=== PATIENT | female | born 1945 | race Caucasian/White ===

== ENCOUNTER 2019-06-25 13:10 | Emergency (ER) | payer MEDICARE ==
[~2019-06-25] VITALS: Ht 165.5 cm; Wt 66.9 kg
[2019-06-25 13:43] LABS: HEMATOCRIT 40 % (35-52); HEMOGLOBIN 12.9 G/DL (11.5-16.0); MEAN CORPUSCULAR HEMOGLOBIN 29 PG (25-34); MEAN CORPUSCULAR HGB CONC 32 G/DL (32-36); MEAN CORPUSCULAR VOLUME 91 FL (80-99); WHITE BLOOD COUNT 6.7 10^3/uL (4.3-11.0)
[2019-06-25 13:44] LABS: BASOPHILS % (AUTO) 1 % (0-10); EOSINOPHILS # (AUTO) 0.2 10^3/uL (0.0-0.3); EOSINOPHILS % (AUTO) 3 % (0-10); LYMPHOCYTES # (AUTO) 2.6 X 10^3 (1.0-4.0); LYMPHOCYTES % (AUTO) 39 % (12-44); MEAN PLATELET VOLUME 9.8 FL (7.4-10.4); MONOCYTES # (AUTO) 0.8 X 10^3 (0.0-1.0); MONOCYTES % (AUTO) 12 % (0-12); NEUTROPHILS % (AUTO) 45 % (42-75); PLATELET COUNT 267 10^3/uL (130-400); RED CELL DISTRIBUTION WIDTH 12.8 % (10.0-14.5)
--- NOTE | 2019-06-25 14:08 | ED General ---
General Chief Complaint: Altered Mental Status Stated Complaint: AMS Source of Information: Patient Exam Limitations: No Limitations History of Present Illness Date Seen by Provider: Jun 25, 2019 Time Seen by Provider: 13:45 Initial Comments The patient is a very pleasant 74-year-old female who presents for evaluation of acute onset of confusion. The patient was at work and went into a coworker's office at 1300 and stated that she was having a hard time thinking area and the coworker is now in the emergency department and denies any facial droop, difficulty walking, or difficulty with word finding. The patient was repeating herself and was having significant confusion. They checked her blood pressure at work and it was quite elevated with a systolic of approximately 220. Per the patient's son who is present the patient's only prescribed medication is Synthroid. She is able to tell me that the year is 2018 but she is unsure of the month. She thinks that her physician is a physician who actually retired 3 years ago. She denies headache, neck pain or neck stiffness, fevers or chills, vision changes, focal weakness or focal numbness, chest pain or shortness of breath, back or abdominal discomfort, dizziness or syncope. She is alert, calm, and appears to be in no distress. Timing/Duration: 1/2 Hour Severity: Moderate Associated Systoms: Denies Symptoms Allergies and Home Medications Allergies Coded Allergies: simvastatin (Verified Allergy, Unknown, 06/25/19) Patient Home Medication List Home Medication List Reviewed: Yes Review of Systems Review of Systems Constitutional: no symptoms reported EENTM: no symptoms reported Respiratory: no symptoms reported Cardiovascular: no symptoms reported Gastrointestinal: no symptoms reported Genitourinary: no symptoms reported Musculoskeletal: no symptoms reported Skin: no symptoms reported Psychiatric/Neurological: Other (confusion) Hematologic/Lymphatic: No Symptoms Reported Immunological/Allergic: no symptoms reported All Other Systems Reviewed Negative Unless Noted: Yes Past Tnrncvv-Strtmw-Dzuvbz Hx Past Med/Social Hx: Reviewed Nursing Past Med/Soc Hx Patient Social History Alcohol Use: Rarely Uses Recreational Drug Use: No Smoking Status: Never a Smoker 2nd Hand Smoke Exposure: No Recent Foreign Travel: No Recent Hopitalizations: No Physical Abuse: No Sexual Abuse: No Mistreated: No Fear: No Seasonal Allergies Seasonal Allergies: No Past Medical History Surgeries: Yes Adenoidectomy, Hysterectomy, Tonsillectomy Respiratory: No Cardiac: Yes High Cholesterol, Hypertension Neurological: No Genitourinary: No Gastrointestinal: No Musculoskeletal: No Endocrine: Yes Hypothyroidsim HEENT: No Cancer: No Psychosocial: No Integumentary: No Physical Exam Vital Signs Capillary Refill : Height, Weight, BMI Height: '" Weight: lbs. oz. kg; BMI Method: General Appearance: No Apparent Distress, WD/WN Eyes: Bilateral Eye Normal Inspection, Bilateral Eye PERRL, Bilateral Eye EOMI HEENT: PERRL/EOMI, Normal ENT Inspection, Pharynx Normal Neck: Full Range of Motion, Normal Inspection, Non Tender, Supple Respiratory: Chest Non Tender, Normal Breath Sounds, No Respiratory Distress Cardiovascular: Regular Rate, Rhythm, No Edema, No Murmur Gastrointestinal: Normal Bowel Sounds, Non Tender, Soft Extremity: Normal Capillary Refill, Normal Range of Motion, Non Tender Neurologic/Psychiatric: Alert, No Motor/Sensory Deficits, Normal Mood/Affect, concreting supervisor II-XII Norm as Tested, Other (NIHSS: 1 (month/age), confused) Skin: Normal Color, Warm/Dry Progress/Results/Core Measures Suspected Sepsis SIRS Temperature: Pulse: Respiratory Rate: Laboratory Tests 06/25/19 13:30: White Blood Count 6.7 Blood Pressure / Mean: Laboratory Tests 06/25/19 13:30: Creatinine 0.72, INR Comment 0.9, Platelet Count 267, Total Bilirubin 0.3 Results/Orders Lab Results Laboratory Tests Test 06/25/19 13:30 06/25/19 14:02 Range/Units White Blood Count 6.7 4.3-11.0 10^3/uL Red Blood Count 4.41 4.35-5.85 10^6/uL Hemoglobin 12.9 11.5-16.0 G/DL Hematocrit 40 35-52 % Mean Corpuscular Volume 91 80-99 FL Mean Corpuscular Hemoglobin 29 25-34 PG Mean Corpuscular Hemoglobin Concent 32 32-36 G/DL Red Cell Distribution Width 12.8 10.0-14.5 % Platelet Count 267 130-400 10^3/uL Mean Platelet Volume 9.8 7.4-10.4 FL Neutrophils (%) (Auto) 45 42-75 % Lymphocytes (%) (Auto) 39 12-44 % Monocytes (%) (Auto) 12 0-12 % Eosinophils (%) (Auto) 3 0-10 % Basophils (%) (Auto) 1 0-10 % Neutrophils # (Auto) 3.0 1.8-7.8 X 10^3 Lymphocytes # (Auto) 2.6 1.0-4.0 X 10^3 Monocytes # (Auto) 0.8 0.0-1.0 X 10^3 Eosinophils # (Auto) 0.2 0.0-0.3 10^3/uL Basophils # (Auto) 0.0 0.0-0.1 10^3/uL Prothrombin Time 12.3 12.2-14.7 SEC INR Comment 0.9 0.8-1.4 Activated Partial Thromboplast Time 28 24-35 SEC Sodium Level 139 135-145 MMOL/L Potassium Level 4.0 3.6-5.0 MMOL/L Chloride Level 102 98-107 MMOL/L Carbon Dioxide Level 25 21-32 MMOL/L Anion Gap 12 5-14 MMOL/L Blood Urea Nitrogen 16 7-18 MG/DL Creatinine 0.72 0.60-1.30 MG/DL Estimat Glomerular Filtration Rate > 60 BUN/Creatinine Ratio 22 Glucose Level 92 70-105 MG/DL Calcium Level 9.7 8.5-10.1 MG/DL Corrected Calcium 9.4 8.5-10.1 MG/DL Total Bilirubin 0.3 0.1-1.0 MG/DL Aspartate Amino Transf (AST/SGOT) 23 5-34 U/L Alanine Aminotransferase (ALT/SGPT) 17 0-55 U/L Alkaline Phosphatase 56 40-136 U/L Troponin I < 0.30 <0.30 NG/ML Total Protein 7.8 6.4-8.2 GM/DL Albumin 4.4 3.2-4.5 GM/DL Urine Color YELLOW Urine Clarity CLEAR Urine pH 6.0 5-9 Urine Specific Fitzwilliam <=1.005 1.016-1.022 Urine Protein NEGATIVE NEGATIVE Urine Glucose (UA) NEGATIVE NEGATIVE Urine Ketones NEGATIVE NEGATIVE Urine Nitrite NEGATIVE NEGATIVE Urine Bilirubin NEGATIVE NEGATIVE Urine Urobilinogen 0.2 NORMAL MG/DL Urine Leukocyte Esterase NEGATIVE NEGATIVE Urine RBC (Auto) NEGATIVE NEGATIVE Urine RBC NONE /HPF Urine WBC RARE /HPF Urine Squamous Epithelial Cells RARE /HPF Urine Crystals NONE /LPF Urine Bacteria NEGATIVE /HPF Urine Casts NONE /LPF Urine Mucus NONE /LPF Urine Culture Indicated NO My Orders Orders - LUIS THORNTON DO Cbc With Automated Diff (06/25/19:) Protime With Inr (06/25/19:) Partial Thromboplastin Time (06/25/19) Comprehensive Metabolic Panel (06/25/19) Troponin I Fs (06/25/19) Ua Culture If Indicated (06/25/19:) Chest 1 View Ap/Pa Only (06/25/19) Ekg Tracing (06/25/19) Nothing By Mouth (06/25/19 Dinner) Ed Iv/Invasive Line Start (06/25/19:) Vital Signs Stroke Patient Q15M (06/25/19:) Ct Head Wo-R/O Stroke (06/25/19) O2 (06/25/19) Monitor-Rhythm Ecg Trace Only (06/25/19) Dysphagia Screening Tool (06/25/19:) Vital Signs/I&O Capillary Refill : Progress Note : Progress Note @1425 - Patient and family updated on lab and imaging results. CT head is unremarkable. Given the patient's acute onset of confusion as well as uncontrolled hypertension I explained to the family that she would be best served to be at a facility with excellent stroke care. Her NIH is only 1. I splinted him that I would like to discuss with a neurologist if they would like me to leave the blood pressure alone or to treat it. I would also like to discuss with them if the patient would be a TPA candidate. Her symptoms started approximately 1.5 hours ago. Family states they will call other family to see if they prefer the [facility] or the [facility] for transfer. @1450 - Family made multiple phone calls to family members in the medical field and now wants to call insurance companies before deciding on location. I explained that we need to initiate the transfer and that if they find out that the hospital is not within their network we can always cancel the transfer and try a different hospital but I do not want to cause any further delay. He states transfer the patient to the [facility]. The express understanding. [facility]'s transfer line called and they state they will call back with a transfer physician as well as a neurologist. @1505 - Dr. Anton Wallace accepts the ER-to-ER transfer at [facility]. Dr. Love, neurology, also on the call. He feels the likelihood of this being a stroke is less than 1% and to hold off on TPA. They plan to obtain further imaging (MRI) immediately upon arrival and recommend travel by helicopter. ECG Comment @1319 - sinus bradycardia, rate of 52, normal axis, no acute ischemic findings noted, no STEMI, reviewed and interpreted by myself Diagnostic Imaging Diagonstic Imaging: CT Comments [facility] [place] NAME: NIKHIL DUTTA [facility] REC#: [id number] PT STATUS: REG ER : 1945 PHYSICIAN: LUIS THORNTON DO ADMIT DATE: 06/25/19/ER FS Draft Date of Exam:06/25/19 CT HEAD WO-R/O STROKE INDICATION: Altered mental status. TECHNIQUE: Routine non contrast-enhanced axial images were obtained from the skull base to the vertex. Auto Exposure Controls were utilized during the CT exam to meet ALARA standards for radiation dose reduction COMPARISON: None. FINDINGS: The ventricles and cortical sulci are diffusely prominent, compatible with age-related volume loss. There is no midline shift or mass-effect. No acute intra-axial hemorrhage is seen. There are no abnormal areas of increased or decreased density to suggest acute hemorrhage or edema. No extra-axial masses or collections are present. The bony calvarium is intact. The visualized paranasal sinuses show mild scattered mucosal thickening. The mastoid air cells are clear. IMPRESSION: 1. No acute intracranial abnormality. No CT evidence of mass, acute infarct or intracranial hemorrhage. Dictated on workstation # [id number] Dict: 06/25/19 1405 Trans: 06/25/19 1407 [id number] Interpreted by: FERNANDA PALMA MD Electronically signed by: Departure Impression Primary Impression: Acute confusion Additional Impression: Hypertensive urgency Disposition: 02 XFER SHT-TRM HOSP Condition: Critical Transfer Transfer Reason: Exceeds level of care Time Spoke to Accepting Phy: 15:[address] Anton Wallace, [facility] [place] transfer physician, accepts the ER-to-ER transfer at [facility]. Dr. Love from neurology also on phone call, states no TPA as likelihood of stroke is very low and NIH is only 1. He feels transient global amnesia is much more likely. Transfer Time: 15:10 Method of Transfer: Air Departure-Patient Inst. Referrals: NATHANAEL BUTLER MD (PCP/Family) Primary Care Physician LUIS THORNTON DO Jun 25, 2019 14:08
--- NOTE | 2019-06-25 14:09 | Diagnostic Imaging Report ---
INDICATION: Altered mental status. TIME OF EXAM: 1:20 p.m. COMPARISON: No prior studies are available for comparison. FINDINGS: The heart size is normal. The pulmonary vascularity is unremarkable. The lungs are clear. No infiltrate, effusion or pneumothorax is detected. IMPRESSION: No acute cardiopulmonary process is detected. Dictated by: Dictated on workstation # [id number]
[2019-06-25 14:21] LABS: BACTERIA,URINE NEGATIVE /HPF; BILIRUBIN,URINE NEGATIVE (NEGATIVE); CLARITY,URINE CLEAR; COLOR,URINE YELLOW; GLUCOSE, URINE (UA) NEGATIVE (NEGATIVE); KETONES,URINE NEGATIVE (NEGATIVE); LEUKOCYTE ESTERASE ,URINE NEGATIVE (NEGATIVE); NITRITE,URINE NEGATIVE (NEGATIVE); PROTEIN,URINE NEGATIVE (NEGATIVE); SQUAMOUS EPITHELIAL CELL,UR RARE /HPF; UROBILINOGEN,URINE 0.2 MG/DL (NORMAL); WBC,URINE RARE /HPF
[2019-06-25 14:31] LABS: ALKALINE PHOSPHATASE 56 U/L (40-136); BILIRUBIN,TOTAL 0.3 MG/DL (0.1-1.0); BUN/CREATININE RATIO 22; CALCIUM 9.7 MG/DL (8.5-10.1); CARBON DIOXIDE 25 MMOL/L (21-32); CHLORIDE 102 MMOL/L (98-107); CREATININE SERUM 0.72 MG/DL (0.60-1.30); GFR ESTIMATED > 60; GLUCOSE 92 MG/DL (70-105); SODIUM 139 MMOL/L (135-145)
[2019-06-25 14:32] LABS: ALANINE AMINOTRANSFERASE 17 U/L (0-55); ALBUMIN 4.4 GM/DL (3.2-4.5); TOTAL PROTEIN 7.8 GM/DL (6.4-8.2)
[2019-06-25 14:33] LABS: INR 0.9 (0.8-1.4); PROTHROMBIN TIME PATIENT 12.3 SEC (12.2-14.7)
--- NOTE | 2019-06-25 15:11 | NUR ---
[facility] called for transfer to [facility] on the [place]. Approximate ETA is 1535.
--- NOTE | 2019-06-25 15:28 | NUR ---
[facility] called, approx ETA in 10 minutes.
[2019-06-25 15:32] VITALS: BP 175/74
--- NOTE | 2019-06-25 15:39 | NUR ---
[facility] crew here for patient transfer. Family at bedside updated on patient's transfer location.
== END 2019-06-25 15:53 | disposition short-term general hospital (02) ==
LOC: EDUNIT# 13:10 → ER FS 13:11
DX: R41.0 Disorientation, unspecified (principal); I16.0 Hypertensive urgency; I10 Essential (primary) hypertension; E78.00 Pure hypercholesterolemia, unspecified; E03.9 Hypothyroidism, unspecified; Z88.8 Allergy status to other drugs, medicaments and biological substances; Z90.89 Acquired absence of other organs; Z90.710 Acquired absence of both cervix and uterus
CPT/HCPCS: 36415; 70450; 71045; 80053; 81000; 84484; 85025; 85610; 85730; 93005; 93041

== ENCOUNTER 2019-07-07 13:20 | Emergency (ER) | payer MEDICARE, BC ==
[~2019-07-07] VITALS: Ht 162.5 cm; Wt 65.8 kg
--- NOTE | 2019-07-07 13:47 | ED Cardiac General ---
History of Present Illness General Chief Complaint: Cardiac/General Problems Stated Complaint: HIGH BP Nursing Triage Note: Patient c/o elevated blood pressure. States that she was recently hospitalized and started on blood pressure medications for newly diagnosed hypertension. Reports that she was monitoring her blood pressure and noticed it started to rise around 1130. She called [facility] walkin clinic and was told to go to the ER for further evaluation. Patient denies any pain at this time. Source: patient Exam Limitations: no limitations History of Present Illness Date Seen by Provider: Jul 07, 2019 Time Seen by Provider: 13:38 Initial Comments Concern of elevated BP. States she was feeling "funny", so she checked her BP and it was 150/?, then she rechecked several more times and it kept getting hi gher. Called the walk-in clinic and was advised to go to the ER. No other concerns. States recent Hx of "transient global amnesia" 2 weeks ago and after that (or noted then) she had elevated BP and was started on Amlodopine 5mg, and HCTZ 25mg. Prior to that she had been off all BP meds for many years. Allergies and Home Medications Allergies Coded Allergies: simvastatin (Verified Allergy, Unknown, 06/25/19) Patient Home Medication List Home Medication List Reviewed: Yes Review of Systems Review of Systems Constitutional: no symptoms reported; No dizziness, No fever, No malaise, No weakness Respiratory: Denies Cough, Denies Orthopnea, Denies Shortness of Air, Denies SOA With Exertion, Denies SOA at Rest Cardiovascular: See HPI; Denies Chest Pain, Denies Edema, Denies Irregular Heart Rate, Denies Lightheadedness, Denies Palpitations, Denies Syncope Gastrointestinal: Denies Abdominal Pain, Denies Nausea, Denies Poor Appetite, Denies Vomiting Musculoskeletal: No back pain, No joint pain Past Axinoja-Npipil-Zwbjjc Hx Past Med/Social Hx: Reviewed Nursing Past Med/Soc Hx Patient Social History Alcohol Use: Denies Use Recreational Drug Use: No Smoking Status: Never a Smoker 2nd Hand Smoke Exposure: No Recent Foreign Travel: No Contact w/Someone Who Travel: No Recent Infectious Disease Expo: No Recent Hopitalizations: Yes (June 25, 2019 . 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 oz. kg; 24.00 BMI Method: General Appearance: No Apparent Distress, WD/WN Respiratory: Lungs Clear, Normal Breath Sounds Cardiovascular: Regular Rate, Rhythm, No Edema Neurologic/Psychiatric: Alert, Oriented x3 Skin: Normal Color, Warm/Dry Progress/Results/Core Measures Results/Orders Vital Signs/I&O 07/07/19 13:26 Temp 36.6 Pulse 62 Resp 18 B/P (MAP) 167/78 (107) Pulse Ox 100 O2 Delivery Room Air Blood Pressure Mean: 107 Progress Progress Note : Progress Note Spent a lengthy time discussing BP management w pt and her son. Explained that her BP, although not ideal right now was being treated with good medication and she should continue to take it as instructed and f/u w her PCP in 2 wks for re-evaluation. If her BP is still running high at that time, her PCP may increase the dose. For now, I advised to check her BP less frequently, not several times daily and not even daily. I recommended checking 3 times weekly at random times and recording the date and time in a log she can take to her PCP in 2 wks. I also discouraged checking her BP everytime she feels "funny". I encouraged her to call 911 for stroke or heart or breathing problems or any other serious concern she may have. Pt received advice well. Departure Impression Primary Impression: Hypertension Qualified Codes: I10 - Essential (primary) hypertension Additional Impression: Anxiety about health Disposition: HOME, SELF-CARE Condition: Stable Departure-Patient Inst. Referrals: NATHANAEL BUTLER MD (PCP/Family) Primary Care Physician LUX BHATIA DO Jul 07, 2019 13:47
[2019-07-07 13:52] VITALS: BP 163/62
== END 2019-07-07 13:52 | disposition home or self-care (01) ==
LOC: EDUNIT# 13:20 → ER FS 13:21
DX: I10 Essential (primary) hypertension (principal); F41.9 Anxiety disorder, unspecified; E78.00 Pure hypercholesterolemia, unspecified; E03.9 Hypothyroidism, unspecified; Z88.8 Allergy status to other drugs, medicaments and biological substances; Z90.89 Acquired absence of other organs; Z90.710 Acquired absence of both cervix and uterus
CPT/HCPCS: 99283

== ENCOUNTER → 2019-11-13 | Outpatient (CLI) | payer MEDICARE, BC ==
[2019-11-13 09:04] LABS: ALANINE AMINOTRANSFERASE 18 U/L (0-55); ALBUMIN 4.3 GM/DL (3.2-4.5); ALKALINE PHOSPHATASE 58 U/L (40-136); BILIRUBIN,TOTAL 0.3 MG/DL (0.1-1.0); BUN/CREATININE RATIO 20; CALCIUM 9.5 MG/DL (8.5-10.1); CARBON DIOXIDE 28 MMOL/L (21-32); CHLORIDE 101 MMOL/L (98-107); CREATININE SERUM 0.81 MG/DL (0.60-1.30); GFR ESTIMATED > 60; GLUCOSE 90 MG/DL (70-105); POTASSIUM 3.8 MMOL/L (3.6-5.0); SODIUM 140 MMOL/L (135-145); TOTAL PROTEIN 7.4 GM/DL (6.4-8.2)
== END ==
LOC: LAB FS 08:15
PROVIDERS: ATTEND Family Medicine
DX: E03.9 Hypothyroidism, unspecified (principal); I10 Essential (primary) hypertension
CPT/HCPCS: 36415; 80053; 84443

== ENCOUNTER → 2020-04-30 | Outpatient (CLI) | payer MEDICARE, BC ==
[2020-05-01 13:03] LABS: ALANINE AMINOTRANSFERASE 17 U/L (0-55); ALKALINE PHOSPHATASE 56 U/L (40-136); BILIRUBIN,TOTAL 0.3 MG/DL (0.1-1.0); BUN/CREATININE RATIO 26; CALCIUM 9.5 MG/DL (8.5-10.1); CARBON DIOXIDE 28 MMOL/L (21-32); CHLORIDE 103 MMOL/L (98-107); CREATININE SERUM 0.72 MG/DL (0.60-1.30); GFR ESTIMATED > 60; GLUCOSE 99 MG/DL (70-105); POTASSIUM 4.3 MMOL/L (3.6-5.0); SODIUM 141 MMOL/L (135-145); TOTAL PROTEIN 7.4 GM/DL (6.4-8.2)
[2020-05-01 13:04] LABS: ALBUMIN 4.3 GM/DL (3.2-4.5)
[2020-05-01 16:02] LABS: CHOLESTEROL 251 MG/DL (< 200); HDL CHOLESTEROL 64 MG/DL (40-60); TRIGLYCERIDES 76 MG/DL (<150); VLDL CHOLESTEROL 15 MG/DL (5-40)
== END ==
LOC: LAB FS 09:16
PROVIDERS: ATTEND Family Medicine
DX: I10 Essential (primary) hypertension (principal); E03.9 Hypothyroidism, unspecified
CPT/HCPCS: 36415; 80053; 80061; 84443

== ENCOUNTER → 2020-11-10 | Outpatient (CLI) | payer MEDICARE ==
[2020-11-10 10:36] LABS: CARBON DIOXIDE 26 MMOL/L (21-32); CHLORIDE 105 MMOL/L (98-107); POTASSIUM 4.1 MMOL/L (3.6-5.0); SODIUM 143 MMOL/L (135-145)
[2020-11-10 10:37] LABS: ALANINE AMINOTRANSFERASE 20 U/L (0-55); ALBUMIN 4.3 GM/DL (3.2-4.5); ALKALINE PHOSPHATASE 55 U/L (40-136); BILIRUBIN,TOTAL 0.3 MG/DL (0.1-1.0); BUN/CREATININE RATIO 23; CALCIUM 9.8 MG/DL (8.5-10.1); CREATININE SERUM 0.84 MG/DL (0.60-1.30); GFR ESTIMATED > 60; GLUCOSE 91 MG/DL (70-105); TOTAL PROTEIN 7.3 GM/DL (6.4-8.2)
[2020-11-10 15:33] LABS: TRIGLYCERIDES 76 MG/DL (<150); VLDL CHOLESTEROL 15 MG/DL (5-40)
[2020-11-10 15:38] LABS: CHOLESTEROL 225 MG/DL (< 200)
[2020-11-10 15:39] LABS: HDL CHOLESTEROL 64 MG/DL (40-60)
== END ==
LOC: LAB FS 08:31
PROVIDERS: ATTEND Family Medicine
DX: E03.9 Hypothyroidism, unspecified (principal); I10 Essential (primary) hypertension
CPT/HCPCS: 36415; 80053; 80061; 84443

== ENCOUNTER → 2021-05-06 | Outpatient (CLI) | payer MEDICARE ==
[2021-05-06 15:30] LABS: POTASSIUM 3.3 MMOL/L (3.6-5.0)
[2021-05-06 15:31] LABS: ALBUMIN 4.4 GM/DL (3.2-4.5); BILIRUBIN,TOTAL 0.5 MG/DL (0.1-1.0); CALCIUM 9.9 MG/DL (8.5-10.1); CREATININE SERUM 0.71 MG/DL (0.60-1.30); TOTAL PROTEIN 7.3 GM/DL (6.4-8.2)
== END ==
LOC: LAB FS 13:19
PROVIDERS: ATTEND Family Medicine
DX: I10 Essential (primary) hypertension (principal); E03.9 Hypothyroidism, unspecified
CPT/HCPCS: 36415; 80053; 80061; 84443

== ENCOUNTER → 2021-05-13 | Outpatient (CLI) | payer MEDICARE | LOC: LABNPT 14:00 | PROVIDERS: ATTEND Family Medicine | DX: L29.3 Anogenital pruritus, unspecified (principal) | CPT/HCPCS: 87210 ==

== ENCOUNTER → 2021-11-09 | Outpatient (CLI) | payer MEDICARE ==
[2021-11-09 11:00] LABS: BILIRUBIN,TOTAL 0.3 MG/DL (0.1-1.0); CALCIUM 9.9 MG/DL (8.5-10.1); CREATININE SERUM 0.74 MG/DL (0.60-1.30); POTASSIUM 4.1 MMOL/L (3.6-5.0)
[2021-11-09 11:01] LABS: ALBUMIN 4.5 GM/DL (3.2-4.5); TOTAL PROTEIN 7.3 GM/DL (6.4-8.2)
== END ==
LOC: LAB FS 09:28
PROVIDERS: ATTEND Family Medicine
DX: E78.5 Hyperlipidemia, unspecified (principal); E03.9 Hypothyroidism, unspecified; I10 Essential (primary) hypertension
CPT/HCPCS: 36415; 80053; 80061; 84443

== ENCOUNTER → 2022-05-10 | Outpatient (CLI) | payer MEDICARE ==
[2022-05-10 10:50] LABS: ALBUMIN 4.4 GM/DL (3.2-4.5); BILIRUBIN,TOTAL 0.4 MG/DL (0.1-1.0); CALCIUM 9.9 MG/DL (8.5-10.1); CREATININE SERUM 0.74 MG/DL (0.60-1.30); POTASSIUM 3.9 MMOL/L (3.6-5.0)
== END ==
LOC: LAB FS 09:03
PROVIDERS: ATTEND Family Medicine
DX: I10 Essential (primary) hypertension (principal)
CPT/HCPCS: 36415; 80053; 80061

== ENCOUNTER → 2022-07-07 | Outpatient (CLI) | payer MEDICARE ==
--- NOTE | 2022-07-07 11:23 | Diagnostic Imaging Report ---
INDICATION: Chronic constipation. COMPARISON: None available. TECHNIQUE: Single radiograph of the abdomen dated 07/07/2022. FINDINGS: The visualized lung bases are clear. An extensive amount of stool is noted within the colon extending from the pelvis throughout the colon. No abnormally dilated loops of small bowel. No differential air-fluid levels. No free air. No suspicious calcifications overlying the chest. Mild apex left curvature of the thoracolumbar spine. No acute osseous abnormality. IMPRESSION: Extensive amount of stool throughout the colon, likely related to constipation. No evidence of small bowel obstruction. Mild apex left curvature of the spine. Dictated by: Dictated on workstation # [id number]
== END ==
LOC: RAD FS 09:51
PROVIDERS: ATTEND Family Medicine
DX: K59.09 Other constipation (principal)
CPT/HCPCS: 74018